=== PATIENT | female | born 1975 | race Caucasian/White ===

== ENCOUNTER 2018-01-09 14:19 | Emergency (ER) | payer OTHER ==
[~2018-01-09] VITALS: Ht 154.9 cm; Wt 77.6 kg
[~2018-01-09 14:19] MED LIST: COUMADIN5 MG PO; IBUPROFEN400 MG PO; LOVENOX80 MG SUB-Q; NAPROSYN500 MG PO; PERCOCET 2.5-31 EACH PO; ZOFRAN ODT4 MG SL
== END 2018-01-09 14:32 | disposition short-term general hospital (02) ==
LOC: ED 14:19
DX: S89.91XA Unspecified injury of right lower leg, initial encounter (principal); X58.XXXA Exposure to other specified factors, initial encounter